=== PATIENT | male | born 1965 | race African-American/Black ===

== ENCOUNTER 2019-11-23 18:43 | Emergency (ER) | payer MEDICAID ==
[~2019-11-23] VITALS: Ht 175.3 cm; Wt 73.0 kg
[2019-11-23 18:44] VITALS: BP 156/102
== END 2019-11-23 19:09 | disposition left against medical advice (07) ==
LOC: ER 18:47
DX: F10.129 Alcohol abuse with intoxication, unspecified (principal); R00.0 Tachycardia, unspecified; Z53.21 Procedure and treatment not carried out due to patient leaving prior to being seen by health care provider; Y90.9 Presence of alcohol in blood, level not specified
CPT/HCPCS: 93005

== ENCOUNTER 2022-03-02 11:42 | Emergency (ER) | payer MEDICAID, OTHER ==
[~2022-03-02] VITALS: Ht 172.7 cm; Wt 64.0 kg
[2022-03-02] MEDS ORDERED: SODIUM CHLORIDE 0.9% 1,000 ML IV ONE ×2 (12:00→12:30)
[2022-03-02 12:18] LABS: BASOPHILS % 0.6 % (0.0-2.0); EOSINOPHILS % 0.8 % (0.0-5.0); HEMATOCRIT. 38.2 % (42.0-52.0); HEMOGLOBIN. 12.3 g/dL (14.0-18.0); LYMPHOCYTES % 14.4 % (20.0-50.0); MEAN CORPUSCULAR HEMOGLOBIN 30.5 pg (28.0-32.0); MEAN CORPUSCULAR VOLUME 94.3 fL (80.0-94.0); MONOCYTES % 7.5 % (2.0-8.0); NEUTROPHILS % 76.7 % (40.0-76.0); PLATELET 147 x1000/uL (130-400); RED BLOOD CELL COUNT 4.05 mill/uL (4.7-6.1); RED CELL DISTRIBUTION WIDTH 14.5 % (11.6-14.6)
[2022-03-02 12:25] LABS: CHLORIDE 105 mEq/L (98-107)
[2022-03-02] MEDS ORDERED: DEXTROSE 50% WATER 50ML SYRINGE IV ONE (12:30)
[2022-03-02] MEDS ORDERED: CALCIUM GLUCONATE 100MG/ML 10ML VIAL IV NR (15:30)
[2022-03-03 03:00] VITALS: BP 146/83
== END 2022-03-03 03:51 | disposition short-term general hospital (02) ==
LOC: ER 12:25 → CANBEDREQ 23:21 → ER 03-03 03:51
DX: R55 Syncope and collapse (principal); R42 Dizziness and giddiness; Z20.822 Contact with and (suspected) exposure to COVID-19
CPT/HCPCS: 36415; 71045; 80053; 82962; 83735; 84484; 85025; 87426; 93005; 96361; 96374; 96375; 99285; C9803; J0610; J7030

== ENCOUNTER 2024-12-05 19:02 | Emergency (ER) | payer OTHER ==
[~2024-12-05] VITALS: Ht 170.2 cm; Wt 52.0 kg
[2024-12-05 19:39] VITALS: O2SAT 98
[2024-12-05] MEDS: ACETAMINOPHEN 500MG TABLET PO ONE (20:18)
[2024-12-05] MEDS: ONDANSETRON 4MG ODT PO ONE (20:18)
[2024-12-05 20:59] LABS: BASOPHILS % 0.9 % (0.0-2.0); EOSINOPHILS % 3.3 % (0.0-5.0); HEMATOCRIT. 37.6 % (42.0-52.0); HEMOGLOBIN. 12.3 g/dL (14.0-18.0); LYMPHOCYTES % 36.9 % (20.0-50.0); MEAN PLATELET VOLUME 8.1 fl (7.4-10.4); MONOCYTES % 14.2 % (2.0-8.0); NEUTROPHILS % 44.7 % (40.0-76.0); PLATELET 229 x1000/uL (130-400); RED BLOOD CELL COUNT 3.88 mill/uL (4.7-6.1); RED CELL DISTRIBUTION WIDTH 15.7 % (11.6-14.6)
[2024-12-05] MEDS ORDERED: HALOPERIDOL LACTATE 5MG/ML VIAL IM ONE (21:00)
[2024-12-05 21:06] LABS: INR 1.1
[2024-12-05 21:08] LABS: CREATININE 1.3 mg/dL (0.6-1.3)
[2024-12-05 21:09] LABS: UREA NITROGEN BLOOD 29 mg/dL (9-23)
[2024-12-05 21:10] LABS: ASPARTATE AMINOTRANSFERASE 26 IU/L (<34); ETHANOL BLOOD 300 mg/dL (<10); PROTEIN TOTAL 7.9 g/dL (6.0-8.3)
[2024-12-05 21:11] LABS: BILIRUBIN DIRECT 0.1 mg/dL (<=3.0); BILIRUBIN TOTAL 0.5 mg/dL (0.1-1.0)
[2024-12-05 21:48] VITALS: BP 155/101; PULSE 79; RESP 12; TEMP 36.7; O2SAT 100
[2024-12-05] MEDS ORDERED: LORAZEPAM 2MG/ML UD SYRINGE IM SCH (22:00)
== END 2024-12-05 21:51 | disposition home or self-care (01) ==
LOC: ER 19:02 → CMPBEDREQ 12-07 07:16
DX: F10.129 Alcohol abuse with intoxication, unspecified (principal); I10 Essential (primary) hypertension; Y90.9 Presence of alcohol in blood, level not specified; Z79.899 Other long term (current) drug therapy
CPT/HCPCS: 80076; 80048; 80307; 80329; 80320; 82140; 83735; 85025; 85610; 85730; 36415; 70450; 99284; Q0162; J1630; J2060; G0480